=== PATIENT | female | born 1990 | race Caucasian/White ===

== ENCOUNTER 2024-06-08 19:55 | Emergency (ER) | payer OTHER ==
--- NOTE | 2024-06-08 20:26 | ED Physician Documentation ---
History of Present Illness - Stated complaint Stated Complaint: KNEE PX - History obtained from History obtained from: Patient - Additonal information Additional information: 33-year-old woman, currently at 10 weeks gestational age with hypertension diagnosed during her on labetalol, presents with right knee sudden popping sensation when she stood up from lunch today. She does have a history of right knee pain and believes that she had a meniscus tear in the past, though she has never had MRI but did undergo physical therapy previously. She is unable to bear weight without pain and states that even light touch is to the foot are painful.Denies numbness or weakness. No history of trauma. PD PAST MEDICAL HISTORY - Present Medications Home Medications: Ambulatory Orders Medication Instructions Recorded Confirmed Labetalol [Trandate] 200 mg PO BID 06/08/24 06/08/24 Oxycodone HCl/Acetaminophen 1 each PO Q4H PRN #8 tablet 06/08/24 [Percocet 5-325 mg Tablet] - Allergies Allergies/Adverse Reactions: Allergies Allergy/AdvReac Type Severity Reaction Status Date / Time Sulfa (Sulfonamide Allergy Rash Verified 06/08/24 20:23 Antibiotics) PD ED PE NORMAL - Vitals Vital signs reviewed: Yes - General General: Alert and oriented X 3, No acute distress, Well developed/nourished, Other (Large body habitus) - HEENT HEENT: Atraumatic, PERRL, EOMI - Neck Neck: Supple, no meningeal sign - Derm Derm: Normal color, Warm and dry - Extremities Extremities: No deformity, No tenderness to palpate, Other (Tender with range of motion of right knee. No valgus or varus tenderness or laxity . negative anterior drawer sign. sensation, movement and cap refill intact BL LE. normal DP pulses BL LE) Results - Vitals Vitals: Vital Signs - 24 hr 06/08/24 06/08/24 20:24 20:45 Temperature 36.4 C L 36.8 C Heart Rate 91 78 Respiratory 16 16 Rate Blood Pressure 148/65 H 126/88 H O2 Saturation 98 98 Oxygen O2 Source Room air PD Medical Decision Making - ED course ED course: 33-year-old woman with history of right knee issues presents with right knee popping sensation spontaneously when standing up from lunch today. Because she is currently she has been unable to take NSAIDs and states that the pain is severe and debilitating. I provided her with a short course of narcotics with the understanding that there are risks and side effects which she was counseled about. She also received a knee immobilizer and symptomatic care was discussed. Plan to follow-up outpatient with her primary care provider for referral to physical therapy. Return precautions given. Departure - Departure Disposition: 01 Home, Self Care Clinical Impression: Knee instability Condition: Stable Instructions: ED Immobilizer Knee Prescriptions: Oxycodone HCl/Acetaminophen [Percocet 5-325 mg Tablet] 1 each PO Q4H PRN #8 tablet PRN Reason: Pain >8 Comments: You were seen in the emergency department for KNEE PAIN AND INSTABILITY. Prescription sent to [facility] in [place]. Do not use when driving or operating heavy machinery. Dispose of any unused pills at your local police station. This medication may cause constipation. If you are prone to constipation then please take with [id number] sennadocusate and MiraLAX. Please follow-up with your primary care provider for referral to physical therapy and return to the emergency department if you have any new or worsening symptoms or other concerns. Forms: PCP List Discharge Date/Time: 06/08/24 21:03
[2024-06-08 20:30] VITALS: O2SAT 98
[2024-06-08] MEDS: oxyCODONE 5 MG TABLET PO STA (20:34)
[2024-06-08 20:51] VITALS: BP 126/88
== END 2024-06-08 21:03 | disposition home or self-care (01) ==
LOC: ED 19:55
DX: O99.891 Other specified diseases and conditions complicating pregnancy (principal); M25.361 Other instability, right knee; Z3A.10 10 weeks gestation of pregnancy
CPT/HCPCS: 99283; A9270